=== PATIENT | female | born 1965 | race Caucasian/White ===

== ENCOUNTER 2022-10-09 10:28 | Emergency (ER) | payer MEDICAID ==
[~2022-10-09] VITALS: Ht 160 cm; Wt 113.1 kg
[2022-10-09 11:13] VITALS: BP 125/85
[2022-10-09] MEDS ORDERED: LIDOCAINE 1% HCL (LOCAL ANESTH.) INJ 20ML MDV IJ ONE (13:00)
[2022-10-09] MEDS ORDERED: TETANUS-DIPTH-ACEL PERTUSSIS 0.5ML SYR Tdap IM ONE (13:30)
== END 2022-10-09 13:35 | disposition home or self-care (01) ==
LOC: ER 10:28
DX: S51.812A Laceration without foreign body of left forearm, initial encounter (principal); Z23 Encounter for immunization; W25.XXXA Contact with sharp glass, initial encounter; Y93.89 Activity, other specified; Y92.89 Other specified places as the place of occurrence of the external cause; Y99.8 Other external cause status
CPT/HCPCS: 12002; 90471; 90715; 99283; J2001

== ENCOUNTER 2023-04-23 11:13 | Emergency (ER) | payer MEDICAID ==
[~2023-04-23] VITALS: Ht 160 cm; Wt 112.9 kg
[2023-04-23 13:16] VITALS: BP 132/71; PULSE 94; RESP 16; TEMP 97.9; O2SAT 97
== END 2023-04-23 13:56 | disposition home or self-care (01) ==
LOC: ER 11:13
DX: S80.02XA Contusion of left knee, initial encounter (principal); R51.9 Headache, unspecified; W01.198A Fall on same level from slipping, tripping and stumbling with subsequent striking against other object, initial encounter; Y93.89 Activity, other specified; Y92.89 Other specified places as the place of occurrence of the external cause; Y99.8 Other external cause status
CPT/HCPCS: 70450